=== PATIENT | female | born 1965 | race Caucasian/White ===

== ENCOUNTER → 2021-02-02 | Outpatient (CLI) | payer OTHER ==
--- NOTE | 2021-02-02 13:27 | PFTRPT ---
Height: 61.00 Inches Weight: 130.00 Lbs BSA: 1.57 Diagnosis: J44.9 DATE: 02/02/2021 ORDERING PHYSICIAN: Hilda Kan NP Pre and post bronchodilator studies have excellent technical quality. Forced vital capacity is reduced. FEV1 is out of proportion. Obstructive index is therefore reduced. Expiratory limit of the flow-volume loop is consistent with very significant flow rate limitation. Markedly favorable bronchodilator response is identified. Total lung capacity is borderline elevated. Residual volume is in proportion. Diffusing capacity is severely reduced and does not correct for alveolar volume. Hemoglobin is reduced at 11.8. Airway resistance and conductance are normal. IMPRESSION: Significant reversible obstructive ventilatory defect with concomitant anemia as well as a significant secondary diffusing capacity impairment. Clinical correlation with the above will be necessary. MTDD
== END ==
LOC: M CARPUL 12:40
PROVIDERS: ATTEND Nurse Practitioner Adult Health
DX: J44.9 Chronic obstructive pulmonary disease, unspecified (principal)

== ENCOUNTER → 2021-06-14 | Outpatient (REF) | LOC: M SLEEP HO 10:00 | PROVIDERS: ATTEND Student in an Organized Health Care Education/Training Program | DX: G47.30 Sleep apnea, unspecified (principal) ==

== ENCOUNTER → 2021-09-09 | Outpatient (CLI) | payer OTHER | LOC: M SLEEP 20:00 | PROVIDERS: ATTEND Nurse Practitioner Adult Health | DX: R06.83 Snoring (principal) ==

== ENCOUNTER → 2023-01-10 | Outpatient (CLI) | payer OTHER | LOC: M PLARAD 09:42 | PROVIDERS: ATTEND Nurse Practitioner Adult Health | DX: R91.8 Other nonspecific abnormal finding of lung field (principal) | CPT/HCPCS: 78815; A9552 ==

== ENCOUNTER → 2023-02-28 | Outpatient (CLI) | payer OTHER | LOC: M RAD 13:03 | PROVIDERS: ATTEND Internal Medicine Pulmonary Disease | DX: R91.8 Other nonspecific abnormal finding of lung field (principal) ==

== ENCOUNTER → 2023-07-04 | Outpatient (CLI) | payer OTHER | LOC: M RAD 12:32 | PROVIDERS: ATTEND Internal Medicine Pulmonary Disease | DX: R91.8 Other nonspecific abnormal finding of lung field (principal) ==

== ENCOUNTER 2023-08-09 08:11 | Day surgery (SDC) | payer OTHER ==
[~2023-08-09] VITALS: Ht 154.9 cm; Wt 56.4 kg
[~2023-08-09 08:11] MED LIST: AJOV225I SC; ATOR80TA59 PO; BRIM1OPD OU; BUSP10TA PO; CYAN-11 PO; DESV25TA PO; ESTR0.059 TD; FLUT1BLS8 IH; IPRA0.00 INH; MUCI600T31 PO; NAPR-885 PO; NITR0.4S14 SL; OMEP40CA5 PO; POTA10808 PO; PROG1CAP8 PO; RANO500T2 PO; REFR0.5D8 OU; SYNT100T PO; TOPI-21 PO; TRIL1TAB PO; VENTAER INH; XALA0.007 OU
[2023-08-09] MEDS ORDERED: LR 1,000 ML IV SCH ×2 (11:15→14:10)
[2023-08-09] MEDS ORDERED: ONDANSETRON 4MG 2ML VIAL As Ordered ONE (11:44)
[2023-08-09] MEDS ORDERED: ROCURONIUM BROMIDE 50MG/5ML VIAL As Ordered ONE (11:44)
[2023-08-09] MEDS ORDERED: propofoL 200 MG/20 ML VIAL As Ordered ONE (11:44)
[2023-08-09] MEDS ORDERED: SUGAMMADEX SODIUM 500 MG/5 ML VIAL (BRIDION) As Ordered ONE (11:44)
[2023-08-09] MEDS ORDERED: fentaNYL 100 MCG/2 ML INJECTION As Ordered ONE (11:45)
[2023-08-09] MEDS ORDERED: LIDOCAINE 2% 100MG/5ML SDV (FOR ANES.) As Ordered ONE (11:45)
[2023-08-09] MEDS: LIDOCAINE PRES-FREE 2% 10ML AMP INH ONE (12:13)
[2023-08-09] MEDS: ALBUTEROL SULFATE 2.5MG/0.5ML INH NEB SOLN INH ONE (12:13)
[2023-08-09] MEDS ORDERED: ePHEDrine SULFATE 25 MG/5 ML(5MG/ML) SYRINGE As Ordered ONE (12:40)
[2023-08-09] MEDS ORDERED: PHENYLephrine 500MCG 5ML (100MCG/ML) SYRINGE As Ordered ONE (12:40)
[2023-08-09] MEDS ORDERED: MIDAZOLAM INJ 2MG/2ML VIAL As Ordered ONE (12:41)
[2023-08-09] MEDS ORDERED: ACETAMINOPHEN 1000MG 100ML IV BAG As Ordered ONE (13:09)
[2023-08-09] MEDS: CETACAINE SPRAY 5GM As Ordered ONE (13:40)
[2023-08-09] MEDS: EPINEPHrine 1MG/10ML SYRINGE 1.5IN As Ordered ONE (13:40)
[2023-08-09] MEDS ORDERED: ESMOLOL INJ 100MG/10ML VIAL As Ordered ONE (13:55)
[2023-08-09] MEDS ORDERED: HYDROMORPHONE HCL 0.5 MG/ 0.5 ML SYRINGE IV PRN (14:10)
[2023-08-09] MEDS ORDERED: ONDANSETRON 4MG 2ML VIAL IV PRN (14:10)
[2023-08-09] MEDS ORDERED: fentaNYL 100 MCG/2 ML INJECTION IV PRN (14:10)
[2023-08-09] MEDS: oxyCODONE 5MG TAB PO PRN (14:47)
[2023-08-09 15:40] VITALS: BP 102/63; TEMP 98.2; O2SAT 92
== END 2023-08-09 16:19 | disposition home or self-care (01) ==
LOC: M SDC 08:11
PROVIDERS: ATTEND Internal Medicine Pulmonary Disease
DX: J84.10 Pulmonary fibrosis, unspecified (principal); J21.9 Acute bronchiolitis, unspecified; I48.91 Unspecified atrial fibrillation; G47.9 Sleep disorder, unspecified; Z79.899 Other long term (current) drug therapy; Z79.01 Long term (current) use of anticoagulants; Z88.8 Allergy status to other drugs, medicaments and biological substances; F17.210 Nicotine dependence, cigarettes, uncomplicated
CPT/HCPCS: 31624; 31627; 31628; 31653; 31654; 71045; 76000; 88108; 88305; 88313; 93005; J0131; J0171; J1100; J2250; J2371; J2405; J3010

== ENCOUNTER → 2023-09-04 | Outpatient (CLI) | payer OTHER | LOC: M PLALAB 10:12 | PROVIDERS: ATTEND Internal Medicine Pulmonary Disease | DX: J44.9 Chronic obstructive pulmonary disease, unspecified (principal) ==

== ENCOUNTER → 2024-02-26 | Outpatient (CLI) | payer OTHER | LOC: M PLARAD 11:16 | PROVIDERS: ATTEND Internal Medicine Pulmonary Disease | DX: R91.8 Other nonspecific abnormal finding of lung field (principal) | CPT/HCPCS: 78815; A9552 ==